=== PATIENT | male | born 2000 | race Caucasian/White ===

== ENCOUNTER 2022-09-27 14:29 | Emergency (ER) | payer OTHER ==
--- NOTE | 2022-09-27 14:31 | ERPHSYRPT ---
- History of Present Illness Time Seen by Provider: 09/27/22 14:31 Source: patient Exam Limitations: no limitations Physician History: The 22-year-old white male who is on no medications and has noted known drug allergies and was working in the [place] yesterday when he grabbed a wire that apparently was alive. He grabbed it with his right hand but he did have a glove on. He was electrocuted and it "knocked me on my ass". He stated likely because of the adrenaline he was not feeling too much pain. However, today when he woke up he does not feel right. He describes this as aching all over he denies nausea. He has no mitchell sores present. He does not have shortness of breath but he does ache all over including his neck and back and shoulders and all his extremities as well as achiness in his chest and abdominal wall. He has had no nausea vomiting or diarrhea. He is eating normally. Occurred: yesterday Method of Injury: other (Electrocuted last evening) Quality: aching Extremities Pain Location: other: bilateral (All over his body including all 4 of his extremities) Modifying Factors: Improves With: nothing Associated Symptoms: back pain, other (Achiness all over his body) Allergies/Adverse Reactions: bee venom protein (honey bee) Allergy (Verified 09/27/22 14:47) shrimp Allergy (Verified 09/27/22 14:47) Home Medications: No Reportable Medications [No Reported Medications] 09/27/22 [History] Travel Risk - International Travel Have you traveled outside of the country in past 3 weeks: No - Coronavirus Screening Are you exhibiting any of the following symptoms?: No Close contact with a COVID-19 positive Pt in past 14-21 Days: No - Review of Systems Constitutional: No Symptoms Eyes: No Symptoms Ears, Nose, & Throat: No Symptoms Respiratory: No Symptoms Cardiac: No Symptoms Abdominal/Gastrointestinal: No Symptoms Genitourinary Symptoms: No Symptoms Musculoskeletal: Arthralgias, Myalgias Skin: No Symptoms Neurological: No Symptoms Psychological: No Symptoms Endocrine: No Symptoms Hematologic/Lymphatic: No Symptoms Immunological/Allergic: No Symptoms All Other Systems: Reviewed and Negative - Past Medical History Pertinent Past Medical History: No - Past Surgical History Past Surgical History: No - Nursing Vital Signs Nursing Vital Signs: Initial Vital Signs Temperature 97.3 F 09/27/22 14:49 Pulse Rate 73 08/18/23 14:49 Respiratory Rate 18 09/27/22 14:49 Blood Pressure 115/78 09/27/22 14:49 O2 Sat by Pulse Oximetry 97 09/27/22 14:49 Pain Scale Pain Intensity 4 - Physical Exam General Appearance: no apparent distress, alert, anxiety Eyes, Ears, Nose, Throat Exam: normal ENT inspection, moist mucous membranes Neck Exam: normal inspection, non-tender, supple, full range of motion Cardiovascular/Respiratory Exam: chest non-tender, no respiratory distress Abdominal Exam: non-tender, soft, no organomegaly Back Exam: normal inspection, normal range of motion, CVA tenderness (Mild bilateral to percussion), No vertebral tenderness, No muscle spasm, No point tenderness Shoulder Exam: normal inspection, no evidence of injury, normal ROM Elbow/Forearm Exam: normal inspection, no evidence of injury, normal ROM Wrist Exam: normal inspection, no evidence of injury, normal ROM Hand Exam: normal inspection, no evidence of injury, normal ROM Neuro/Tendon Exam: normal sensation, normal motor functions, normal tendon functions, responds to pain, no evidence tendon injury Mental Status Exam: alert, oriented x 3, cooperative Skin Exam: normal color, warm, dry, other (No burn sites. No entrance or exit sites on patient's right hand or other extremities.) SpO2 Interpretation: normal O2 Delivery: Room Air - Course Nursing assessment & vital signs reviewed: Yes EKG Interpreted by Me: RATE (58), Sinus Rhythm, NORMAL AXIS, NORMAL INTERVALS, NORMAL QRS, NORMAL ST-T, Other (No acute ischemic changes on today's twelve-lead EKG) Ordered Tests: Active Orders 24 hr Category Date Time Status [place] STAT Care 09/27/22 15:09 Active EKG-ER Only STAT Care 09/27/22 15:09 Active IV Insertion STAT Care 09/27/22 15:09 Active Pulse Oximetry (ED) STAT Care 09/27/22 15:09 Active CBC W DIFF Stat Lab 09/27/22 15:09 Completed CK-Creatinine Phosphokinase Stat Lab 09/27/22 15:09 Completed CMP Stat Lab 09/27/22 15:09 Completed MAGNESIUM Stat Lab 09/27/22 15:09 Completed TROPONIN Q4H Lab 09/27/22 15:15 Completed TROPONIN Q4H Lab 09/27/22 19:15 Ordered TROPONIN Q4H Lab 09/27/22 23:15 Ordered UA W/RFX UR CULTURE Stat Lab 09/27/22 15:40 Completed Medication Summary Discontinued Medications Generic Name Dose Route Start Last Admin Trade Name Kathryn PRN Reason Stop Dose Admin Lactated Ringer's 1,000 mls @ 999 mls/hr 09/27/22 15:10 09/27/22 15:32 Lactated Ringers IV 09/27/22 16:10 999 mls/hr .Q1H1M ONE Administration Lactated Ringer's Confirm 09/27/22 15:29 Lactated Ringers Administered 09/27/22 15:30 Dose 1,000 mls @ ud IV .STK-MED ONE Lab/Rad Data: Laboratory Result Diagrams 09/27/22 15:09 09/27/22 15:09 Laboratory Results 09/27/22 09/27/22 09/27/22 Range/Units 15:40 15:15 15:09 WBC (4.0-10.5) x10^3/uL RBC (4.1-5.6) x10^6/uL Hgb (12.5-18.0) g/dL Hct (42-50) % MCV (78-100) fL MCH (26-32) pg MCHC (32-36) g/dL RDW (11.5-14.0) % Plt Count (150-450) x10^3/uL MPV (7.5-11.0) fL Gran % (36.0-66.0) % Immature Gran % (Auto) (0.00-0.4) % Nucleat RBC Rel Count (0.00-0.1) % Eos # (Auto) (0-0.5) x10^3/uL Immature Gran # (Auto) (0.00-0.03) x10^3u/L Absolute Lymphs (auto) (1.0-4.6) x10^3/uL Absolute Monos (auto) (0.0-1.3) x10^3/uL Absolute Nucleated RBC (0.00-0.01) x10^3u/L Lymphocytes % (24.0-44.0) % Monocytes % (0.0-12.0) % Eosinophils % (0.00-5.0) % Basophils % (0.0-0.4) % Absolute Granulocytes (1.4-6.9) x10^3/uL Basophils # (0-0.4) x10^3/uL Sodium 140 (137-145) mmol/L Potassium 4.5 (3.5-5.1) mmol/L Chloride 101 (98-107) mmol/L Carbon Dioxide 31 H (22-30) mmol/L Anion Gap 12.3 (5-15) MEQ/L BUN 9 (9-20) mg/dL Creatinine 0.97 (0.66-1.25) mg/dL Estimated GFR > 60.0 ML/MIN Glucose 80 (74-106) mg/dL Calcium 9.1 (8.4-10.2) mg/dL Magnesium 2.4 H (1.6-2.3) mg/dL Total Bilirubin 0.60 (0.2-1.3) mg/dL AST 34 (17-59) U/L ALT 35 (0-50) U/L Alkaline Phosphatase 82 (38-126) U/L Creatine Kinase 607 H (55-170) U/L Troponin I < 0.012 (0.000-0.034) ng/mL Serum Total Protein 7.5 (6.3-8.2) g/dL Albumin 4.6 (3.5-5.0) g/dL Urine Color Yellow (Yellow) Urine Appearance Turbid A (Clear) Urine pH 7.5 (4.6-8.0) Ur Specific [place] 1.020 (1.005-1.030) Urine Protein Negative (Negative) Urine Glucose (UA) Negative (Negative) mg/dL Urine Ketones Negative (Negative) Urine Blood Negative (Negative) Urine Nitrite Negative (Negative) Urine Bilirubin Negative (Negative) Urine Urobilinogen 1.0 A (0.2) mg/dL Ur Leukocyte Esterase Small A (Negative) U Hyaline Cast (Auto) NONE SEEN (0-2) /LPF Urine Microscopic RBC 0-2 (0-5) /HPF Urine Microscopic WBC 6-10 A (0-5) /HPF Ur Epithelial Cells None Seen (None Seen) /HPF Urine Bacteria None Seen (None Seen) /HPF Urine Culture Reflexed NO (NO) 09/27/ Range/Units 15:09 WBC 5.7 (4.0-10.5) x10^3/uL RBC 5.09 (4.1-5.6) x10^6/uL Hgb 15.1 (12.5-18.0) g/dL Hct 46.7 (42-50) % MCV 91.7 (78-100) fL MCH 29.7 (26-32) pg MCHC 32.3 (32-36) g/dL RDW 12.8 (11.5-14.0) % Plt Count 187 (150-450) x10^3/uL MPV 11.2 H (7.5-11.0) fL Gran % 47.5 (36.0-66.0) % Immature Gran % (Auto) 0.2 (0.00-0.4) % Nucleat RBC Rel Count 0.0 (0.00-0.1) % Eos # (Auto) 0.32 (0-0.5) x10^3/uL Immature Gran # (Auto) 0.01 (0.00-0.03) x10^3u/L Absolute Lymphs (auto) 1.99 (1.0-4.6) x10^3/uL Absolute Monos (auto) 0.58 (0.0-1.3) x10^3/uL Absolute Nucleated RBC 0.00 (0.00-0.01) x10^3u/L Lymphocytes % 34.9 (24.0-44.0) % Monocytes % 10.2 (0.0-12.0) % Eosinophils % 5.6 H (0.00-5.0) % Basophils % 1.6 (0.0-0.4) % Absolute Granulocytes 2.72 (1.4-6.9) x10^3/uL Basophils # 0.09 (0-0.4) x10^3/uL Sodium (137-145) mmol/L Potassium (3.5-5.1) mmol/L Chloride (98-107) mmol/L Carbon Dioxide (22-30) mmol/L Anion Gap (5-15) MEQ/L BUN (9-20) mg/dL Creatinine (0.66-1.25) mg/dL Estimated GFR ML/MIN Glucose (74-106) mg/dL Calcium (8.4-10.2) mg/dL Magnesium (1.6-2.3) mg/dL Total Bilirubin (0.2-1.3) mg/dL AST (17-59) U/L ALT (0-50) U/L Alkaline Phosphatase (38-126) U/L Creatine Kinase (55-170) U/L Troponin I (0.000-0.034) ng/mL Serum Total Protein (6.3-8.2) g/dL Albumin (3.5-5.0) g/dL Urine Color (Yellow) Urine Appearance (Clear) Urine pH (4.6-8.0) Ur Specific [place] (1.005-1.030) Urine Protein (Negative) Urine Glucose (UA) (Negative) mg/dL Urine Ketones (Negative) Urine Blood (Negative) Urine Nitrite (Negative) Urine Bilirubin (Negative) Urine Urobilinogen (0.2) mg/dL Ur Leukocyte Esterase (Negative) U Hyaline Cast (Auto) (0-2) /LPF Urine Microscopic RBC (0-5) /HPF Urine Microscopic WBC (0-5) /HPF Ur Epithelial Cells (None Seen) /HPF Urine Bacteria (None Seen) /HPF Urine Culture Reflexed (NO) - Progress Progress: improved Progress Note: 09/27/22 16:33 Patient's medical history is 1 of moderate complexity. Level of complexity in the work-up performed based on review of the patient's past medical history, review of the patient's medication list, review reviewed the patient's drug allergy list, history of present illness and physical findings on examination. The work-up in this patient includes twelve-lead EKG, placement of intravenous line, infusion of 1 L lactated Ringer solution, CBC, CMP, creatinine kinase, urine myoglobin, urinalysis and magnesium level. We also did a troponin level and a twelve-lead EKG. I reviewed the results of the work-up. There is no evidence of any acute emergent findings. Counseled pt/family regarding: lab results, diagnosis, need for follow-up Medical Desision Making - Diagnostic Testing Diagnostic test were ordered, analyzed, and reviewed by me: Yes - Risk of complications Minimal Risk: Minimal risk of morbidity - Departure Departure Disposition: Home Clinical Impression: Electric shock Condition: Stable Critical Care Time: No Additional Instructions: Drink plenty of fluids. Use Tylenol and ibuprofen for aches and pain control. Follow-up with your primary care provider on 09/30/2022. Return to the emergency department if symptoms worsen. Rest over the weekend.
[2022-09-27 15:02] VITALS: RESP 18; TEMP 97.3
[2022-09-27] MEDS ORDERED: Lactated Ringers 1,000 ML IV ONE ×2 (15:10→15:29)
[2022-09-27 15:54] LABS: Absolute Neutrophil Ct (ANC) 2.72 x10^3/uL (1.4-6.9); BASOPHIL % 1.6 % (0.0-0.4); Basophil (Absolute #) 0.09 x10^3/uL (0-0.4); Eosinophil % 5.6 % (0.00-5.0); Eosinophil (Absolute #) 0.32 x10^3/uL (0-0.5); Hematocrit 46.7 % (42-50); Hemoglobin 15.1 g/dL (12.5-18.0); IMMATURE GRAN # 0.01 x10^3u/L (0.00-0.03); IMMATURE GRAN % 0.2 % (0.00-0.4); Lymphocyte (Absolute #) 1.99 x10^3/uL (1.0-4.6); Lymphocytes % 34.9 % (24.0-44.0); Mean Cell Volume 91.7 fL (78-100); Mean Corpuscular Hemoglobin 29.7 pg (26-32); Mean Corpuscular Hgb Concent. 32.3 g/dL (32-36); Mean Platelet Volume 11.2 fL (7.5-11.0); Monocyte (Absolute #) 0.58 x10^3/uL (0.0-1.3); Monocytes % 10.2 % (0.0-12.0); Neutrophil % 47.5 % (36.0-66.0); Platelet Count 187 x10^3/uL (150-450); Red Blood Count 5.09 x10^6/uL (4.1-5.6); Red Cell Distribution Width 12.8 % (11.5-14.0); White Blood Count 5.7 x10^3/uL (4.0-10.5)
[2022-09-27 16:08] LABS: ALBUMIN 4.6 g/dL (3.5-5.0); ALKALINE PHOSPHATASE 82 U/L (38-126); ANION GAP 12.3 MEQ/L (5-15); BLOOD UREA NITROGEN 9 mg/dL (9-20); CHLORIDE 101 mmol/L (98-107); CK-Creatinine Phosphokinase 607 U/L (55-170); Calcium 9.1 mg/dL (8.4-10.2); Carbon Dioxide 31 mmol/L (22-30); Creatinine 1 0.97 mg/dL (0.66-1.25); EST GLOMERULAR FILTRATION RATE > 60.0 ML/MIN; Glucose 80 mg/dL (74-106); MAGNESIUM 2.4 mg/dL (1.6-2.3); Potassium 4.5 mmol/L (3.5-5.1); SGOT/AST 34 U/L (17-59); SGPT/ALT 35 U/L (0-50); SODIUM 140 mmol/L (137-145); Total Protein 7.5 g/dL (6.3-8.2)
[2022-09-27 16:25] LABS: Appearance Turbid (Clear); Bacteria None Seen /HPF (None Seen); Bilirubin Negative (Negative); Blood Negative (Negative); Epithelial Cells None Seen /HPF (None Seen); Glucose, Urine Negative (Negative); Hyaline Casts NONE SEEN /LPF (0-2); Ketones Negative (Negative); Nitrite Negative (Negative); Ph 7.5 (4.6-8.0); Protein,Urine Dip Negative (Negative); RBC 0-2 /HPF (0-5)
[2022-09-27 16:27] LABS: ADD URINE CULTURE? NO (NO); Leukocyte Esterase Small (Negative)
[2022-09-27 16:44] VITALS: BP 102/79; PULSE 65; O2SAT 100
== END 2022-09-27 16:59 | disposition home or self-care (01) ==
LOC: ED 14:29
DX: T75.4XXA Electrocution, initial encounter (principal); W86.1XXA Exposure to industrial wiring, appliances and electrical machinery, initial encounter; Y92.64 Mine or pit as the place of occurrence of the external cause; Y99.0 Civilian activity done for income or pay; R52 Pain, unspecified
CPT/HCPCS: 36000; 36415; 80053; 81001; 82550; 83735; 83874; 84484; 85025; 93005; 93041; 94760; 96360; 99284